=== PATIENT | female | born 1935 | race Caucasian/White ===

== ENCOUNTER 2020-03-23 14:33 | Emergency (ER) | payer MEDICARE, OTHER ==
[~2020-03-23 14:33] MED LIST: ACETAMINOPHEN325 MG PO; CALCIUM600 MG PO; CLARITIN10 MG PO; COLACE100 MG PO; FEOSOL325 MG PO; LAXATIVE OF CHOICE PO; NAPROSYN500 MG PO; PERCOCET 5/3251 TAB PO; PRESERVISION A1 EAC2 PO; PRILOSEC20 MG PO; PROBIOTIC1 EAC5 PO; PROCTOFOAM-HC10 GM TOP; VENELEX OINTMEN60 GM TOP; VITAMIN B-6100 MG PO; VITAMIN D2000 UNI1 PO; XARELTO15 MG PO; XARELTO20 MG PO; [UNRECOGNIZED DRUG - OTHER] PO
[2020-03-23] MEDS ORDERED: NORCO 5-325 TA1 EACH PO (16:47)
[2020-03-28] MEDS ORDERED: PREDNISONE 10MG10 MG PO (10:57)
[2020-03-28] MEDS ORDERED: VITAMIN D3 PO (10:59)
[2020-03-28] MEDS ORDERED: DAILY MULTIPLE1 EAC1 PO (11:05)
[2020-03-28] MEDS ORDERED: BLACK ELDERBER1 EACH PO (11:06)
[2020-03-28] MEDS ORDERED: [UNRECOGNIZED DRUG - OTHER] PO (11:07)
[2020-03-28] MEDS ORDERED: NORCO 5-325 TA1 EACH PO (12:39)
== END 2020-03-23 17:55 | disposition home or self-care (01) ==
LOC: FER 14:33
DX: S52.501A Unspecified fracture of the lower end of right radius, initial encounter for closed fracture (principal); W01.0XXA Fall on same level from slipping, tripping and stumbling without subsequent striking against object, initial encounter; Y92.009 Unspecified place in unspecified non-institutional (private) residence as the place of occurrence of the external cause
CPT/HCPCS: 73090; 73100

== ENCOUNTER → 2020-03-28 | Day surgery (SDC) | payer MEDICARE, OTHER ==
[~2020-03-28] MED LIST changes: +BLACK ELDERBER1 EACH PO; +DAILY MULTIPLE1 EAC1 PO; +NORCO 5-325 TA1 EACH PO; +PREDNISONE 10MG10 MG PO; +VITAMIN D3 PO; +[UNRECOGNIZED DRUG - OTHER] PO
[2020-03-28 11:05] LABS: HCT 41.5 % (37.0-47.0); HGB 12.9 g/dl (12.5-16.0); MCH 26.8 pg (25.0-31.0); MCHC 31.1 g/dL (32.0-36.0); MCV 86.1 fL (78.0-100.0); MPV 10.1 fL (6.0-9.5); RBC 4.82 M/uL (4.20-5.40); RDW 16.7 % (11.5-14.0); WBC 9.1 K/uL (4.0-10.5)
[2020-03-28 11:08] LABS: PROTHROMBIN TIME 12.5 SECONDS (11.4-13.6); PTT 24.2 SECONDS (22.2-34.7)
[2020-03-28 11:18] LABS: ALBUMIN 3.4 g/dL (3.4-5.0); BILIRUBIN - TOTAL 0.4 mg/dL (0.2-1.0); BUN/CREAT RATIO (CALC) 27.9 RATIO; CREATININE 0.61 mg/dL (0.51-0.95); GLOBULIN (CALCULATION) 3.7 g/dL; POTASSIUM 3.5 mmol/L (3.5-5.1); TOTAL PROTEIN 7.1 g/dL (6.4-8.2)
== END | disposition home or self-care (01) ==
LOC: FAS 10:21
PROVIDERS: Legal Medicine
DX: S52.571A Other intraarticular fracture of lower end of right radius, initial encounter for closed fracture (principal); W18.30XA Fall on same level, unspecified, initial encounter; Y92.009 Unspecified place in unspecified non-institutional (private) residence as the place of occurrence of the external cause; Y93.9 Activity, unspecified; Z11.52 Encounter for screening for COVID-19; Z88.0 Allergy status to penicillin; Z88.2 Allergy status to sulfonamides
CPT/HCPCS: 36415; 73100; 76000; 80053; 85610; 85730; C1713; J1100; J2250; J2704; J2795; J3010; J7120; U0002